=== PATIENT | male | born 1950 | race Two or more races ===

== ENCOUNTER 2021-02-06 13:32 | Emergency (ER) | payer OTHER ==
[~2021-02-06] VITALS: Ht 172.7 cm; Wt 78.0 kg
[2021-02-06 13:50] VITALS: BP 143/83
[2021-02-06 14:28] LABS: Urine Bacteria NONE SEEN /hpf (None Seen); Urine Blood 2+ /uL (Negative); Urine Hyaline Cast FEW /lpf (0 - 2); Urine Specific Gravity 1.005 (1.001-1.035); Urine WBC 5 /hpf (0 - 3)
== END 2021-02-06 14:33 | disposition home or self-care (01) ==
LOC: EEVIPCON 13:32 → ER 13:32
DX: R33.9 Retention of urine, unspecified (principal); N39.0 Urinary tract infection, site not specified; I10 Essential (primary) hypertension; E11.9 Type 2 diabetes mellitus without complications; E78.5 Hyperlipidemia, unspecified; Z88.0 Allergy status to penicillin
CPT/HCPCS: 51702; 81001